=== PATIENT | female | born 1975 | race Caucasian/White ===

== ENCOUNTER 2017-05-28 10:47 | Emergency (ER) | payer MEDICARE, OTHER ==
[~2017-05-28] VITALS: Ht 167.6 cm; Wt 88.6 kg
[2017-05-28] MEDS ORDERED: IOHEXOL 350 MG/ML 10 ML VIAL (for RAD DIAG) IVCONTRAST ONE (10:48)
[2017-05-28 10:50] VITALS: BP 160/101; PULSE 91; RESP 20; TEMP 98.7; O2SAT 98
[2017-05-28] MEDS ORDERED: INFL100P (11:40)
[2017-05-28 11:45] VITALS: BP 130/76; PULSE 90; RESP 16; TEMP 98.1; O2SAT 97
[2017-05-28] MEDS ORDERED: LEFL1TAB3 PO (11:48)
[2017-05-28] MEDS ORDERED: LEVO75TA3 PO (11:48)
[2017-05-28] MEDS ORDERED: DICL50TA PO (11:48)
[2017-05-28] MEDS ORDERED: OXYC-103 PO (11:51)
[2017-05-28] MEDS ORDERED: XANA1TAB2 PO (11:55)
[2017-05-28] MEDS ORDERED: ZANA4CAP PO (11:55)
[2017-05-28] MEDS ORDERED: HYDR-3583 PO (11:55)
[2017-05-28] MEDS ORDERED: ROPI2TAB PO (12:06)
[2017-05-28 12:28] LABS: AUTOMATED NEUTROPHIL # 9.6 TH/MM3 (1.8-7.7); BASOPHIL # 0.1 TH/MM3 (0-0.2); BASOPHIL % 0.6 % (0.0-2.0); EOSINOPHIL # 0.3 TH/MM3 (0-0.4); EOSINOPHIL % 2.1 % (0.0-4.0); HEMATOCRIT 42.8 % (35.0-46.0); HEMOGLOBIN 14.5 GM/DL (11.6-15.3); LYMPH % 17.6 % (9.0-44.0); LYMPHOCYTE # 2.3 TH/MM3 (1.0-4.8); MEAN CELL VOLUME 95.4 FL (80.0-100.0); MEAN CORPUSCULAR HEMOGLOBIN 32.3 PG (27.0-34.0); MEAN CORPUSCULAR HGB CONC 33.9 % (32.0-36.0); MEAN PLATELET VOLUME 9.6 FL (7.0-11.0); MONO % 5.4 % (0.0-8.0); MONOCYTE # 0.7 TH/MM3 (0-0.9); NEUT % 74.3 % (16.0-70.0); PLATELET COUNT 217 TH/MM3 (150-450); RED BLOOD COUNT 4.49 MIL/MM3 (4.00-5.30); RED CELL DISTRIBUTION WIDTH 12.3 % (11.6-17.2)
[2017-05-28 12:40] LABS: ALBUMIN 3.7 GM/DL (3.4-5.0); ALT (GPT) 27 U/L (10-53); AST (GOT) 12 U/L (15-37); BICARBONATE 24.3 MEQ/L (21.0-32.0); BLOOD UREA NITROGEN 7 MG/DL (7-18); CALCIUM 8.9 MG/DL (8.5-10.1); CHLORIDE 105 MEQ/L (98-107); CREATININE 0.81 MG/DL (0.50-1.00); GLOMERULAR FILTRATION RATE 78 ML/MIN (>89); GLUCOSE,RANDOM 195 MG/DL (74-106); SODIUM (NA) 136 MEQ/L (136-145)
[2017-05-28 12:42] LABS: ALKALINE PHOSPHATASE 104 U/L (45-117); TOTAL BILIRUBIN ADULT 0.6 MG/DL (0.2-1.0)
[2017-05-28] MEDS ORDERED: MORPHINE SULFATE 2 MG/ML INJ IV PUSH ONE (12:45)
[2017-05-28] MEDS ORDERED: ONDANSETRON HCL 4 MG/2 ML VIAL IV PUSH ONE (13:15)
[2017-05-28 14:02] VITALS: BP 168/94; PULSE 60; RESP 17; O2SAT 96
--- NOTE | 2017-05-28 14:02 | RADRPT ---
EXAM DATE/TIME: 05/28/2017 13:26 [facility] COMPARISON: No previous studies available for comparison. INDICATIONS : Short of breath, embolism. IV CONTRAST: 64 cc Omnipaque 350 (iohexol) IV RADIATION DOSE: 11.00 CTDIvol (mGy) MEDICAL HISTORY : Cardiovascular disease. Systemic sarcoidosis. SURGICAL HISTORY : Cholecystectomy. Lymphectomy. ENCOUNTER: Initial ACUITY: 1 day PAIN SCALE: 5/10 LOCATION: Bilateral chest TECHNIQUE: Volumetric scanning of the chest was performed using a pulmonary embolism protocol MIP images were re constructed. Using automated exposure control and adjustment of the mA and/or kV according to patien t size, radiation dose was kept as low as reasonably achievable to obtain optimal diagnostic quality images. DICOM format image data is available electronically for review and comparison. Follow-up recommendations for detected pulmonary nodules are based at a minimum on nodule size and pa tient risk factors according to Fleischner Society Guidelines. FINDINGS: PULMONARY ARTERIES: No filling defects are seen in the pulmonary arteries through the segmental level. LUNGS: There is no consolidation or pneumothorax . No concerning pulmonary nodule is visualized. PLEURAE: There is no pleural thickening or pleural effusion. MEDIASTINUM: There is good visualization of the great vessels of the middle mediastinum. No evidence of mediastin al or hilar adenopathy/mass. MUSCULOSKELETAL: Within normal limits for patient age. MISCELLANEOUS: The visualized upper abdominal organs demonstrate no acute abnormality. CONCLUSION: No acute disease. Giovanny Arteaga MD on May 28, 2017 at 13:58 Board Certified Radiologist. This report was verified electronically.
--- NOTE | 2017-05-28 14:56 | PD ---
HPI Chief Complaint: Respiratory Distress Time Seen by Provider: 11:47 Travel History International Travel<30 days: No Contact w/Intl Traveler<30days: No Traveled to known affect area: No History of Present Illness HPI This is a 42-year-old female who presents to the emergency department with upper back pain that radiates through to her chest, constant, moderate severity that's been worsening over the past 3 days associated with some shortness of breath. She has a history of sarcoidosis and receives Remicade from an oncologist. She says she can't tolerate steroids. She doesn't currently see a drafter automotive design layout. She does take OxyContin and hydrocodone for pain at home but she says that has not been helping and her pain is worse when she moves and worse when she breathes. PFSH Past Medical History Heart Rhythm Problems: Yes (SINUS TACH) Cancer: Yes (SYSTEMIC SARCOIDOSIS) Cardiovascular Problems: Yes (sinus tachycardia) Chemotherapy: Yes (remicade) Immune Disorder: Yes (ENLARGED SPLEEN) Medical other: Yes (NEUROPATHY) Respiratory: Yes (sarcoidosis) Thyroid Disease: Yes Tetanus Vaccination: Unknown Influenza Vaccination: No ?: Not LMP: 05/05/17 Past Surgical History Cholecystectomy: Yes Other Surgery: Yes (LYMPHECTOMY) Social History Alcohol Use: No Tobacco Use: No Substance Use: No Allergies-Medications (Allergen,Severity, Reaction): Coded Allergies: hydroxychloroquine (Verified Allergy, Unknown, 05/28/17) sulfamethoxazole (Verified Allergy, Unknown, 05/28/17) trimethoprim (Verified Allergy, Unknown, 05/28/17) Uncoded Allergies: STEROIDS (Allergy, Severe, 05/28/17) Reported Meds & Prescriptions Reported Meds & Active Scripts Active Reported Ropinirole 2 Mg Tab 2 Mg PO BID Zanaflex (Tizanidine HCl) 4 Mg Cap 4 Mg PO TID Xanax (Alprazolam) 1 Mg Tab 1 Mg PO Q8H PRN Hydrocodone-Acetaminophen 10-325 mg Tab 1 Tab PO Q6H PRN Oxycontin (Oxycodone HCl) 10 Mg Tab 10 Mg PO Q12HR Diclofenac Potassium 50 Mg Tab 75 Mg PO BID Levothyroxine (Levothyroxine Sodium) 75 Mcg Tab 75 Mcg PO DAILY Leflunomide 20 Mg Tab 20 Mg PO DAILY Remicade Inj (Infliximab) 100 Mg Inj Review of Systems Except as stated in HPI: all other systems reviewed are Neg Physical Exam Narrative GENERAL:Well appearing, no acute distress SKIN: Focused skin assessment warm and dry. HEAD: Atraumatic. Normocephalic. EYES: Pupils equal and round. No injection or drainage. ENT: Moist mucous membranes NECK: Trachea midline. CARDIOVASCULAR: Regular rate and rhythm. No murmur appreciated. RESPIRATORY: Clear to auscultation. Breath sounds equal bilaterally. GASTROINTESTINAL: Abdomen soft, non-tender, nondistended. MUSCULOSKELETAL: No obvious deformities. NEUROLOGICAL: Awake and alert. No obvious cranial nerve deficits. Moving all extremities PSYCHIATRIC: Appropriate mood and affect; insight and judgment normal. Data Data Last Documented VS Vital Signs Date Time Temp Pulse Resp B/P (MAP) Pulse Ox O2 Delivery O2 Flow Rate FiO2 05/28/17 15:08 69 16 166/86 (112) 99 05/28/17 14:02 Room Air 05/28/17 11:45 98.1 Orders Orders Complete Blood Count With Diff (05/28/17 11:54) Comprehensive Metabolic Panel (05/28/17 11:54) ^ Insert Iv (05/28/17 11:54) Ct Pulmonary Angiogram (05/28/17 ) Ed Urine Pregnancytest Poc (05/28/17 11:54) Electrocardiogram (05/28/17 ) B-Type Natriuretic Peptide (05/28/17 11:55) Morphine Inj (Morphine Inj) (05/28/17 12:45) Ondansetron Inj (Zofran Inj) (05/28/17 13:15) Iohexol 350 Inj (Omnipaque 350 Inj) (05/28/17 10:48) Troponin I (05/28/17 14:56) Ed Discharge Order (05/28/17 15:00) Labs Laboratory Tests Test 05/28/17 12:05 White Blood Count 13.0 TH/MM3 Red Blood Count 4.49 MIL/MM3 Hemoglobin 14.5 GM/DL Hematocrit 42.8 % Mean Corpuscular Volume 95.4 FL Mean Corpuscular Hemoglobin 32.3 PG Mean Corpuscular Hemoglobin Concent 33.9 % Red Cell Distribution Width 12.3 % Platelet Count 217 TH/MM3 Mean Platelet Volume 9.6 FL Neutrophils (%) (Auto) 74.3 % Lymphocytes (%) (Auto) 17.6 % Monocytes (%) (Auto) 5.4 % Eosinophils (%) (Auto) 2.1 % Basophils (%) (Auto) 0.6 % Neutrophils # (Auto) 9.6 TH/MM3 Lymphocytes # (Auto) 2.3 TH/MM3 Monocytes # (Auto) 0.7 TH/MM3 Eosinophils # (Auto) 0.3 TH/MM3 Basophils # (Auto) 0.1 TH/MM3 CBC Comment DIFF FINAL Differential Comment Blood Urea Nitrogen 7 MG/DL Creatinine 0.81 MG/DL Random Glucose 195 MG/DL Total Protein 8.0 GM/DL Albumin 3.7 GM/DL Calcium Level 8.9 MG/DL Alkaline Phosphatase 104 U/L Aspartate Amino Transf (AST/SGOT) 12 U/L Alanine Aminotransferase (ALT/SGPT) 27 U/L Total Bilirubin 0.6 MG/DL Sodium Level 136 MEQ/L Potassium Level 3.9 MEQ/L Chloride Level 105 MEQ/L Carbon Dioxide Level 24.3 MEQ/L Anion Gap 7 MEQ/L Estimat Glomerular Filtration Rate 78 ML/MIN Troponin I LESS THAN 0.02 NG/ML B-Type Natriuretic Peptide 8 PG/ML MDM Medical Decision Making Medical Screen Exam Complete: Yes Emergency Medical Condition: Yes Interpretation(s) Afebrile, no hypoxia Labs are reassuring Last [address] Angiography 05/28/17 0000 Signed Impressions: Service Date/Time: Sunday, May 28, 2017 13:26 - CONCLUSION: No acute disease. Giovanny Arteaga MD Differential Diagnosis Pneumonia, pericarditis, pulmonary embolism, aortic dissection, pulmonary sarcoidosis, degenerative disc disease Narrative Course This is a 42-year-old female who presents to the emergency department with back pain that radiates to the chest. She was placed on a monitor and an IV was established. Labs were obtained which were reassuring including a normal troponin and normal BNP. Chest pain has been constant for 3-4 days so I think in the setting of reassuring EKG and normal troponin I doubt this reflects myocardial infarction. CT pulmonary angiogram was obtained to visualize possible pulmonary sarcoidosis or embolism and was unremarkable. Patient may have some musculoskeletal sarcoid complications causing her back pain. Unfortunately she has chronic pain management performed by an outside physician and I'm hesitant to titrate her opiate therapy. Patient did seem upset upon leaving that we weren't going to do more for her pain. I considered prescribing the patient steroids but she says she is allergic to all steroids. I don't think there is an emergent etiology of her symptoms and don't think she requires emergent neuro imaging. I think patient can safely be discharged home and follow-up with her outpatient physicians. Diagnosis Primary Impression: Back pain Qualified Codes: M54.6 - Pain in thoracic spine Patient Instructions: General Instructions Additional Instructions: If you develop severe chest pain, shortness of breath, sweating, lightheadedness , dizziness or difficulty breathing return to the emergency department immediately. Followup with your primary care physician in 2-3 days if your symptoms are not resolved. Med/Other Pt SpecificInfo: No Change to Meds Disposition: 01 DISCHARGE HOME Condition: Stable Katelynn Brower MD May 28, 2017 14:56
[2017-05-28 15:08] VITALS: BP 166/86
--- NOTE | 2017-05-31 00:07 | EKG ---
Date Performed: 05/28/2017 Time Performed: 11:41:18 PTAGE: 42 years EKG: Sinus rhythm NORMAL ECG NO PREVIOUS TRACING DOCTOR: Dmitry Graves Interpretating Date/Time 05/31/2017 00:05:53
== END 2017-05-28 15:11 | disposition home or self-care (01) ==
LOC: NEPE 10:47
DX: M54.6 Pain in thoracic spine (principal); R07.9 Chest pain, unspecified; R06.02 Shortness of breath; D86.89 Sarcoidosis of other sites; E07.9 Disorder of thyroid, unspecified
CPT/HCPCS: 71275; 80053; 83880; 84484; 84703; 85025; 93005; 96374; 96375; 99285; J2270; J2405; Q9967

== ENCOUNTER 2017-08-15 10:29 | Emergency (ER) | payer MEDICARE, OTHER ==
[~2017-08-15 10:29] MED LIST: DICL50TA PO; HYDR-3583 PO; INFL100P; LEFL1TAB3 PO; LEVO75TA3 PO; OXYC-103 PO; ROPI2TAB PO; XANA1TAB2 PO; ZANA4CAP PO
[2017-08-15] MEDS ORDERED: IOHEXOL 350 MG/ML 10 ML VIAL (for RAD DIAG) IVCONTRAST ONE (10:30)
[2017-08-15 10:40] VITALS: BP 153/85; PULSE 79; RESP 16; TEMP 98; O2SAT 96
[2017-08-15] MEDS ORDERED: PROMETHAZINE INJ 25 MG/ML VIAL IM ONE (11:45)
[2017-08-15] MEDS ORDERED: CLINDAMYCIN 600 MG/NS PREMIX 50 ML IV ONE (11:45)
[2017-08-15] MEDS ORDERED: SODIUM CHLOR 0.9% 1000 ML INJ 1,000 ML IV ONE (11:45)
--- NOTE | 2017-08-15 12:06 | PD ---
HPI Chief Complaint: Facial Pain or Swelling Time Seen by Provider: 11:27 Travel History International Travel<30 days: No Contact w/Intl Traveler<30days: No Traveled to known affect area: No History of Present Illness HPI 42-year-old female with history of sarcoidosis on chemotherapy presents emergency department complaining of right-sided jaw pain since yesterday. States that the pain is associated with swelling and "feels funny". Says the pain is constant and feels as if the pain is coming from the "bone outwards" and is severe. Says she has associated nausea and dizziness, she is drooling and feel that her speech is slurred. She is here today because the pain and swelling has worsened this morning. Since she has taken her pain medications without relief. Says she has a fractured tooth near the pain. She has had no unusual tastes in her mouth. denies history of this. Her last chemo was August 07. PFSH Past Medical History Heart Rhythm Problems: Yes (SINUS TACH) Cancer: Yes (SYSTEMIC SARCOIDOSIS) Cardiovascular Problems: Yes (sinus tachycardia) Chemotherapy: Yes (08/07/17) Immune Disorder: Yes (ENLARGED SPLEEN) Respiratory: Yes (sarcoidosis) Thyroid Disease: Yes ?: Unknown Past Surgical History Cholecystectomy: Yes Other Surgery: Yes (LYMPHECTOMY) Social History Alcohol Use: No Tobacco Use: No Substance Use: No Allergies-Medications (Allergen,Severity, Reaction): Coded Allergies: hydroxychloroquine (Verified Allergy, Unknown, 05/28/17) ketorolac (Verified Allergy, Unknown, Psychosis, 08/15/17) sulfamethoxazole (Verified Allergy, Unknown, 05/28/17) trimethoprim (Verified Allergy, Unknown, 05/28/17) Uncoded Allergies: STEROIDS (Allergy, Severe, 05/28/17) Reported Meds & Prescriptions Reported Meds & Active Scripts Active Clindamycin (Clindamycin HCl) 300 Mg Cap 300 Mg PO Q6H 7 Days Reported Ropinirole 2 Mg Tab 2 Mg PO BID Zanaflex (Tizanidine HCl) 4 Mg Cap 4 Mg PO TID Xanax (Alprazolam) 1 Mg Tab 1 Mg PO Q8H PRN Hydrocodone-Acetaminophen 10-325 mg Tab 1 Tab PO Q6H PRN Oxycontin (Oxycodone HCl) 10 Mg Tab 10 Mg PO Q12HR Diclofenac Potassium 50 Mg Tab 75 Mg PO BID Levothyroxine (Levothyroxine Sodium) 75 Mcg Tab 75 Mcg PO DAILY Leflunomide 20 Mg Tab 20 Mg PO DAILY Remicade Inj (Infliximab) 100 Mg Inj Review of Systems Except as stated in HPI: all other systems reviewed are Neg Physical Exam Narrative GENERAL: Well, well-nourished no apparent distress SKIN: Focused skin assessment warm/dry. HEAD: Atraumatic. Normocephalic. EYES: Pupils equal and round. No scleral icterus. No injection or drainage. ENT: No nasal bleeding or discharge. Mucous membranes pink and moist. Right jaw line just inferior to the premolar- area of bulging without fluctuance. No fluctuance or tenderness palpation of the gingiva. Eroded premolar noted without exudate. NECK: Trachea midline. No JVD. No lymphadenopathy, no muscle spasms CARDIOVASCULAR: Regular rate and rhythm. No murmur appreciated. RESPIRATORY: No accessory muscle use. Clear to auscultation. Breath sounds equal bilaterally. GASTROINTESTINAL: Abdomen soft, non-tender, nondistended. No CVA tenderness MUSCULOSKELETAL: No obvious deformities. No clubbing. No cyanosis. No edema. NEUROLOGICAL: Awake and alert. No obvious cranial nerve deficits. Motor grossly within normal limits. Normal speech. PSYCHIATRIC: Appropriate mood and affect; insight and judgment normal. Data Data Last Documented VS Vital Signs Date Time Temp Pulse Resp B/P (MAP) Pulse Ox O2 Delivery O2 Flow Rate FiO2 08/15/17 16:14 08/15/17 14:10 75 17 100 Room Air 08/15/17 10:40 98.0 Orders Orders Clindamycin 600 Mg/Ns Premix (Cleocin 60 (08/15/17 11:45) Sodium Chlor 0.9% 1000 Ml Inj (Ns 1000 M (08/15/17 11:45) Ct Facial Bones W Iv Contrast (08/15/17 ) Promethazine Inj (Phenergan Inj) (08/15/17 11:45) Complete Blood Count With Diff (08/15/17 11:45) Basic Metabolic Panel (Bmp) (08/15/17 11:45) Iohexol 350 Inj (Omnipaque 350 Inj) (08/15/17 10:30) Ed Discharge Order (08/15/17 14:40) Labs Laboratory Tests Test 08/15/17 13:10 White Blood Count 9.6 TH/MM3 Red Blood Count 4.19 MIL/MM3 Hemoglobin 13.2 GM/DL Hematocrit 39.0 % Mean Corpuscular Volume 93.0 FL Mean Corpuscular Hemoglobin 31.6 PG Mean Corpuscular Hemoglobin Concent 33.9 % Red Cell Distribution Width 12.6 % Platelet Count 211 TH/MM3 Mean Platelet Volume 9.4 FL Neutrophils (%) (Auto) 62.4 % Lymphocytes (%) (Auto) 27.6 % Monocytes (%) (Auto) 7.4 % Eosinophils (%) (Auto) 2.2 % Basophils (%) (Auto) 0.4 % Neutrophils # (Auto) 6.0 TH/MM3 Lymphocytes # (Auto) 2.7 TH/MM3 Monocytes # (Auto) 0.7 TH/MM3 Eosinophils # (Auto) 0.2 TH/MM3 Basophils # (Auto) 0.0 TH/MM3 CBC Comment DIFF FINAL Differential Comment Blood Urea Nitrogen 7 MG/DL Creatinine 0.63 MG/DL Random Glucose 195 MG/DL Calcium Level 8.2 MG/DL Sodium Level 137 MEQ/L Potassium Level 4.0 MEQ/L Chloride Level 105 MEQ/L Carbon Dioxide Level 25.3 MEQ/L Anion Gap 7 MEQ/L Estimat Glomerular Filtration Rate 104 ML/MIN [facility] Medical Decision Making Medical Screen Exam Complete: Yes Emergency Medical Condition: Yes Differential Diagnosis Right premolar dental abscess, gingivitis, dental infection Narrative Course 42-year-old female presents emergency department for evaluation of a right painful mass to the jaw. Says she has nausea uncontrolled by her zofran today. Vital signs are stable. Labs and imaging studies ordered. Because of patient's complicated medical history and immunocompromised status, ordered labs and imaging studies to further evaluation to determine treatment. Clindamycin, Phenergan, and 1 L normal saline fluid administered. CBC & BMP Diagram 08/15/17 13:10 Calcium Level 8.2 L Last Impressions Maxillofacial CT 08/15/17 0000 Signed Impressions: Service Date/Time: Tuesday, August 15, 2017 12:54 - CONCLUSION: Soft tissue induration both subcutaneous and in muscles along the right mandible. Etiology for this is not apparent. Saurabh Lemos MD FACR Based off of history and physical, the patient likely has a dental infection. Says she does take probiotics daily. Patient will be prescribed clindamycin for her likely infection. Advised to follow-up with the dentist. Dental information given. Patient advised to use anti-inflammatories and her pain medication for control of her pain and inflammation. Advised that she should follow-up with her primary care physician for further treatment and evaluation. Return to emergency room for worsening or persistent symptoms. Diagnosis Primary Impression: Dental infection Referrals: Primary Care Physician Additional Instructions: Follow-up with a dentist as discussed. Follow-up with her primary care physician. Take all medications as prescribed. If her symptoms persist or worsen return to the emergency room. Scripts Clindamycin (Clindamycin) 300 Mg Cap 300 MG PO Q6H for Infection for 7 Days, #28 CAP 0 Refills Prov: Glroia Martinez MD 08/15/17 Disposition: 01 DISCHARGE HOME Condition: Stable Tasha Mcgill Aug 15, 2017 12:06
--- NOTE | 2017-08-15 13:48 | RADRPT ---
EXAM DATE/TIME: 08/15/2017 12:54 [facility] COMPARISON: No previous studies available for comparison. INDICATIONS : Right side facial swelling. IV CONTRAST: 72 cc Omnipaque 350 (iohexol) IV RADIATION DOSE: 29.28 CTDIvol (mGy) MEDICAL HISTORY : Cardiovascular disease. Lupus. Sarcoidosis. SURGICAL HISTORY : None. ENCOUNTER: Initial ACUITY: 1 day PAIN SCALE: 4/10 LOCATION: Right facial TECHNIQUE: Volumetric scanning of the facial bones was performed. Using automated exposure control and adjustme nt of the mA and/or kV according to patient size, radiation dose was kept as low as reasonably achiev able to obtain optimal diagnostic quality images. DICOM format image data is available electronicall y for review and comparison. FINDINGS: There is soft tissue swelling along the right side of the mandible. Dentition appears intact. Patie nt does have are obtained or in place. This induration is above the expected course of the parotid d uct. The submandibular gland appears normal. There is no abscess. Nasopharynx and oropharynx are unremarkable. CONCLUSION: Soft tissue induration both subcutaneous and in muscles along the right mandible. Et iology for this is not apparent. Saurabh Lemos MD FACR on August 15, 2017 at 13:44 Board Certified Radiologist. This report was verified electronically.
[2017-08-15 13:52] LABS: BASOPHIL % 0.4 % (0.0-2.0); EOSINOPHIL # 0.2 TH/MM3 (0-0.4); EOSINOPHIL % 2.2 % (0.0-4.0); HEMOGLOBIN 13.2 GM/DL (11.6-15.3); LYMPH % 27.6 % (9.0-44.0); LYMPHOCYTE # 2.7 TH/MM3 (1.0-4.8); MEAN CORPUSCULAR HEMOGLOBIN 31.6 PG (27.0-34.0); MEAN CORPUSCULAR HGB CONC 33.9 % (32.0-36.0); MEAN PLATELET VOLUME 9.4 FL (7.0-11.0); MONO % 7.4 % (0.0-8.0); MONOCYTE # 0.7 TH/MM3 (0-0.9); NEUT % 62.4 % (16.0-70.0); PLATELET COUNT 211 TH/MM3 (150-450); RED BLOOD COUNT 4.19 MIL/MM3 (4.00-5.30); RED CELL DISTRIBUTION WIDTH 12.6 % (11.6-17.2); WHITE BLOOD COUNT 9.6 TH/MM3 (4.0-11.0)
[2017-08-15] MEDS ORDERED: CLIN300C5 PO (14:02)
[2017-08-15 14:10] VITALS: BP 133/65; PULSE 75; RESP 17; O2SAT 100
[2017-08-15 14:25] LABS: BICARBONATE 25.3 MEQ/L (21.0-32.0); CALCIUM 8.2 MG/DL (8.5-10.1); CREATININE 0.63 MG/DL (0.50-1.00)
== END 2017-08-15 16:46 | disposition home or self-care (01) ==
LOC: NEPC 10:29
DX: K04.7 Periapical abscess without sinus (principal); S02.5XXA Fracture of tooth (traumatic), initial encounter for closed fracture; X58.XXXA Exposure to other specified factors, initial encounter; D86.9 Sarcoidosis, unspecified; E07.9 Disorder of thyroid, unspecified
CPT/HCPCS: 70487; 80048; 85025; 96372; 96374; 99284; J2550; J7030; Q9967

== ENCOUNTER 2017-08-19 20:37 | Inpatient (IN) | payer MEDICARE, OTHER ==
[~2017-08-19] VITALS: Ht 167.6 cm; Wt 55.6 kg
[~2017-08-19 20:37] MED LIST changes: +CLIN300C5 PO
[2017-08-19 20:44] VITALS: BP 143/105; PULSE 106; RESP 20; TEMP 98.9; O2SAT 96
--- NOTE | 2017-08-19 21:45 | PD ---
HPI Chief Complaint: Facial Pain or Swelling Time Seen by Provider: 21:34 Travel History International Travel<30 days: No Contact w/Intl Traveler<30days: No Traveled to known affect area: No History of Present Illness HPI 42-year-old female with history of sarcoidosis on chemotherapy presents emergency department complaining of increased right jaw pain for 5 days. She describes her pain as severe, constant, and aching. Says she feels like her neck is swollen from the midline to the right and the pain radiates to her right ear. She is concerned because she had episodes of night sweats last night and the pain has not resolved. States she feels that if her swelling is increased since her visit several days ago. Patient states compliance with her medications which include clindamycin. Says she called her oncologist regarding recommendations or whether or not this was related to her sarcoidosis and they did not know. Actually recommended she follow-up with the dentist. PFSH Past Medical History Heart Rhythm Problems: Yes (SINUS TACH) Cancer: Yes (SYSTEMIC SARCOIDOSIS) Cardiovascular Problems: Yes (sinus tachycardia) Chemotherapy: Yes (08/07/17) Immune Disorder: Yes (ENLARGED SPLEEN) Respiratory: Yes (sarcoidosis) Thyroid Disease: Yes ?: Not Past Surgical History Cholecystectomy: Yes Other Surgery: Yes (LYMPHECTOMY) Social History Alcohol Use: No Tobacco Use: No Substance Use: No Allergies-Medications (Allergen,Severity, Reaction): Coded Allergies: hydroxychloroquine (Verified Allergy, Unknown, 05/28/17) ketorolac (Verified Allergy, Unknown, Psychosis, 08/15/17) sulfamethoxazole (Verified Allergy, Unknown, 05/28/17) trimethoprim (Verified Allergy, Unknown, 05/28/17) morphine (Verified Adverse Reaction, Mild, Headache, 08/20/17) Uncoded Allergies: STEROIDS (Allergy, Severe, 05/28/17) Reported Meds & Prescriptions Reported Meds & Active Scripts Active Reported Ropinirole 2 Mg Tab 2 Mg PO BID Zanaflex (Tizanidine HCl) 4 Mg Cap 4 Mg PO TID Xanax (Alprazolam) 1 Mg Tab 1 Mg PO Q8H PRN Hydrocodone-Acetaminophen 10-325 mg Tab 1 Tab PO Q6H PRN Diclofenac Potassium 50 Mg Tab 75 Mg PO BID Levothyroxine (Levothyroxine Sodium) 75 Mcg Tab 75 Mcg PO DAILY Leflunomide 20 Mg Tab 20 Mg PO DAILY Remicade Inj (Infliximab) 100 Mg Inj Review of Systems Except as stated in HPI: all other systems reviewed are Neg Physical Exam Narrative GENERAL: WD, WN in moderate distress from pain SKIN: Focused skin assessment warm/dry. HEAD: Atraumatic. Normocephalic. EYES: Pupils equal and round. No scleral icterus. No injection or drainage. ENT: No nasal bleeding or discharge. Mucous membranes pink and moist. Left jaw -3 cm area of swelling with induration without erythema. No areas of fluctuance. Gingiva nontender, no areas of fluctuance. No puncta or exudate. Fracture to the overlying the area of pain patient describes. Mild tenderness palpation to the left anterior cervical chain without significant lymphadenopathy. NECK: Trachea midline. No JVD. No meningismus CARDIOVASCULAR: Regular rate and rhythm. No murmur appreciated. RESPIRATORY: No accessory muscle use. Clear to auscultation. Breath sounds equal bilaterally. GASTROINTESTINAL: Abdomen soft, non-tender, nondistended. Hepatic and splenic margins not palpable. No CVA tenderness MUSCULOSKELETAL: No obvious deformities. No clubbing. No cyanosis. No edema. NEUROLOGICAL: Awake and alert. No obvious cranial nerve deficits. Motor grossly within normal limits. Normal speech. PSYCHIATRIC: Appropriate mood and affect; insight and judgment normal. Data Data Last Documented VS Orders Orders Complete Blood Count With Diff (08/19/17 20:47) Comprehensive Metabolic Panel (08/19/17 20:47) Prothrombin Time / Inr (Pt) (08/19/17 20:47) Act Partial Throm Time (Ptt) (08/19/17 20:47) Lactic Acid Sepsis Protocol (08/19/17 20:47) Blood Culture (08/19/17 21:45) Morphine Inj (Morphine Inj) (08/19/17 22:30) Piperacil-Tazo 3.375 Gm Premix (Zosyn 3. (08/19/17 23:30) Ampicillin-Sulbactam Inj (Unasyn Inj) (08/19/17 23:45) Admit Order (Ed Use Only) (08/19/17 ) Labs Laboratory Tests Test 08/19/17 22:01 White Blood Count 14.1 TH/MM3 Red Blood Count 4.22 MIL/MM3 Hemoglobin 13.3 GM/DL Hematocrit 38.6 % Mean Corpuscular Volume 91.5 FL Mean Corpuscular Hemoglobin 31.5 PG Mean Corpuscular Hemoglobin Concent 34.4 % Red Cell Distribution Width 12.4 % Platelet Count 256 TH/MM3 Mean Platelet Volume 9.8 FL Neutrophils (%) (Auto) 63.2 % Lymphocytes (%) (Auto) 28.3 % Monocytes (%) (Auto) 6.9 % Eosinophils (%) (Auto) 1.1 % Basophils (%) (Auto) 0.5 % Neutrophils # (Auto) 8.9 TH/MM3 Lymphocytes # (Auto) 4.0 TH/MM3 Monocytes # (Auto) 1.0 TH/MM3 Eosinophils # (Auto) 0.2 TH/MM3 Basophils # (Auto) 0.1 TH/MM3 CBC Comment AUTO DIFF Differential Comment AUTO DIFF CONFIRMED Prothrombin Time 10.9 SEC Prothromb Time International Ratio 1.1 RATIO Activated Partial Thromboplast Time 29.2 SEC Blood Urea Nitrogen 13 MG/DL Creatinine 0.73 MG/DL Random Glucose 207 MG/DL Total Protein 7.7 GM/DL Albumin 3.1 GM/DL Calcium Level 8.3 MG/DL Alkaline Phosphatase 104 U/L Aspartate Amino Transf (AST/SGOT) 27 U/L Alanine Aminotransferase (ALT/SGPT) 32 U/L Total Bilirubin 0.5 MG/DL Sodium Level 136 MEQ/L Potassium Level 4.3 MEQ/L Chloride Level 105 MEQ/L Carbon Dioxide Level 24.1 MEQ/L Anion Gap 7 MEQ/L Estimat Glomerular Filtration Rate 87 ML/MIN MDM Medical Decision Making Medical Screen Exam Complete: Yes Emergency Medical Condition: Yes Differential Diagnosis Dental infection, tooth abscess, osteomyelitis, osteonecrosis, sarcoidosis Narrative Course 42-year-old female with history of sarcoidosis on chemotherapy presents emergency department complaining of increased right jaw pain for 5 days. She describes her pain as severe, constant, and aching. Says she feels like her neck is swollen from the midline to the right and the pain radiates to her right ear. She is concerned because she had episodes of night sweats last night and the pain has not resolved. States she feels that if her swelling is increased since her visit several days ago. Patient states compliance with her medications which include clindamycin. Says she called her oncologist regarding recommendations or whether or not this was related to her sarcoidosis and they did not know. Actually recommended she follow-up with the dentist. Her last chemotherapy dose was August 07. Vital signs-initially tachycardic at 106, blood pressure 143/105, temperature 98.9. Reevaluation shows heart rate 91, blood pressure 124 systolic. Labs ordered. CBC & BMP Diagram 08/19/17 22:01 Total Protein 7.7, Albumin 3.1 L, Calcium Level 8.3 L, Alkaline Phosphatase 104 , Aspartate Amino Transf (AST/SGOT) 27, Alanine Aminotransferase (ALT/SGPT) 32, Total Bilirubin 0.5 Zosyn initiated. It appears that she has worsening jaw pain, leukocytosis. Patient appears to have failed outpatient antibiotic therapy. Should be admitted for IV antibiotics. Spoke with Dr. Moss who agreed with the admission. Diagnosis Primary Impression: Dental infection Admitting Information Admitting Physician Requests: Observation Scripts Ondansetron Odt (Ondansetron Odt) 8 Mg Tab 8 MG SL Q8H Y for NAUSEA OR VOMITING, #12 TAB 0 Refills Prov: Bryan Simmons MD 08/21/17 Amoxicillin-Clavulanate (Augmentin) 875-125 Mg Tab 1 TAB PO BIDTID for Infection, #42 TAB 0 Refills Prov: Bryan Simmons MD 08/21/17 Condition: Stable Tasha Mcgill Aug 19, 2017 21:45
[2017-08-19 22:26] LABS: AUTOMATED NEUTROPHIL # 8.9 TH/MM3 (1.8-7.7); BASOPHIL # 0.1 TH/MM3 (0-0.2); BASOPHIL % 0.5 % (0.0-2.0); EOSINOPHIL # 0.2 TH/MM3 (0-0.4); EOSINOPHIL % 1.1 % (0.0-4.0); HEMATOCRIT 38.6 % (35.0-46.0); HEMOGLOBIN 13.3 GM/DL (11.6-15.3); LYMPH % 28.3 % (9.0-44.0); MEAN CELL VOLUME 91.5 FL (80.0-100.0); MEAN CORPUSCULAR HEMOGLOBIN 31.5 PG (27.0-34.0); MEAN CORPUSCULAR HGB CONC 34.4 % (32.0-36.0); MEAN PLATELET VOLUME 9.8 FL (7.0-11.0); MONO % 6.9 % (0.0-8.0); NEUT % 63.2 % (16.0-70.0); PLATELET COUNT 256 TH/MM3 (150-450); RED BLOOD COUNT 4.22 MIL/MM3 (4.00-5.30); RED CELL DISTRIBUTION WIDTH 12.4 % (11.6-17.2); WHITE BLOOD COUNT 14.1 TH/MM3 (4.0-11.0)
[2017-08-19] MEDS ORDERED: MORPHINE SULFATE 4 MG/ML INJ IV PUSH ONE (22:30)
[2017-08-19 22:44] LABS: ALKALINE PHOSPHATASE 104 U/L (45-117); TOTAL BILIRUBIN ADULT 0.5 MG/DL (0.2-1.0); TOTAL PROTEIN 7.7 GM/DL (6.4-8.2)
[2017-08-19 22:47] LABS: ALBUMIN 3.1 GM/DL (3.4-5.0); ALT (GPT) 32 U/L (10-53); AST (GOT) 27 U/L (15-37); BICARBONATE 24.1 MEQ/L (21.0-32.0); BLOOD UREA NITROGEN 13 MG/DL (7-18); CALCIUM 8.3 MG/DL (8.5-10.1); CHLORIDE 105 MEQ/L (98-107); CREATININE 0.73 MG/DL (0.50-1.00); GLOMERULAR FILTRATION RATE 87 ML/MIN (>89); GLUCOSE,RANDOM 207 MG/DL (74-106); SODIUM (NA) 136 MEQ/L (136-145)
[2017-08-19 22:56] LABS: INTERNATIONAL NORMALIZED RATIO 1.1 RATIO; PROTHROMBIN TIME - PATIENT 10.9 SEC (9.8-11.6)
[2017-08-19 23:27] VITALS: BP 129/69; PULSE 98; RESP 17; O2SAT 97
[2017-08-19] MEDS ORDERED: PIPERACIL-TAZO 3.375 GM PREMIX 50 ML IV ONE (23:30)
[2017-08-19] MEDS ORDERED: AMPICILLIN-SULBACTAM INJ 3 GM in SODIUM CHLORIDE 0.9% INJ 100 ML IV ONE (23:45)
[2017-08-20] VITALS (7 sets, daily range): BP systolic 124–161; BP diastolic 71–98; PULSE 76–96; RESP 16–20; TEMP 96.7–97.8; O2SAT 97–98
[2017-08-20] MEDS ORDERED: OXYC-405 PO (00:04)
[2017-08-20] MEDS ORDERED: ONDA8TAB7 PO (00:05)
[2017-08-20] MEDS ORDERED: SODIUM CHLORIDE 0.9% FLUSH 10 ML FLUSH IV FLUSH PRN (00:45)
[2017-08-20] MEDS ORDERED: SENNOSIDES 8.6 MG TAB PO PRN (00:45)
[2017-08-20] MEDS ORDERED: MAGNESIUM HYDROXIDE SUSP 30 ML CUP PO PRN (00:45)
[2017-08-20] MEDS ORDERED: BISACODYL 10 MG SUPP RECTAL PRN (00:45)
[2017-08-20] MEDS ORDERED: ACETAMINOPHEN 325 MG TAB PO PRN (00:45)
[2017-08-20] MEDS ORDERED: NALOXONE HCL 0.4 MG/ML AMP IV PUSH PRN (00:45)
[2017-08-20] MEDS ORDERED: LACTULOSE SYRUP 20 GM/30 ML CUP PO PRN (00:45)
--- NOTE | 2017-08-20 00:47 | HHI.HP ---
[facility]Staff Admission Diagnosis dental infection, failed outpt abx Diagnoses: Travel History International Travel<30 Days: No Contact w/Intl Traveler <30 Da: No Traveled to Known Affected Are: No History of Present Illness 42-year-old female with a past medical history significant for sarcoidosis, lupus, unspecified neuromuscular disorder, fibromyalgia, restless leg syndrome, hypothyroidism, anxiety, Gustavo syndrome and chronic pain presents to the emergency department for evaluation of right sided facial and chin swelling. The patient was seen in the emergency department on 08/15 where she was given a prescription for clindamycin for an unspecified dental infection. CT done at that time was significant for soft tissue induration. The patient reports compliance with clindamycin without improvement in the swelling or pain of her chin and jaw. She endorses subjective fever/chills. Positive nausea. Negative shortness of breath or chest pain. No abdominal pain or diarrhea. No dysuria. No fatigue or weakness beyond baseline. Review of Systems Except as stated in HPI: all other systems reviewed are Neg Past Family Social History Past Medical History sarcoidosis, lupus, unspecified neuromuscular disorder, fibromyalgia, restless leg syndrome, hypothyroidism, anxiety, Valders syndrome and chronic pain Past Surgical History Cholecystectomy Reported Medications Reported Meds & Active Scripts Active Clindamycin (Clindamycin HCl) 300 Mg Cap 300 Mg PO Q6H 7 Days Reported Ondansetron (Ondansetron HCl) 8 Mg Tab 8 Mg PO Q4-6H Oxycodone ER (Oxycodone HCl) 20 Mg Tab 20 Mg PO Q12HR Ropinirole 2 Mg Tab 2 Mg PO BID Zanaflex (Tizanidine HCl) 4 Mg Cap 4 Mg PO TID Xanax (Alprazolam) 1 Mg Tab 1 Mg PO Q8H PRN Hydrocodone-Acetaminophen 10-325 mg Tab 1 Tab PO Q6H PRN Diclofenac Potassium 50 Mg Tab 75 Mg PO BID Levothyroxine (Levothyroxine Sodium) 75 Mcg Tab 75 Mcg PO DAILY Leflunomide 20 Mg Tab 20 Mg PO DAILY Remicade Inj (Infliximab) 100 Mg Inj Allergies: Coded Allergies: hydroxychloroquine (Verified Allergy, Unknown, 05/28/17) ketorolac (Verified Allergy, Unknown, Psychosis, 08/15/17) sulfamethoxazole (Verified Allergy, Unknown, 05/28/17) trimethoprim (Verified Allergy, Unknown, 05/28/17) Uncoded Allergies: STEROIDS (Allergy, Severe, 05/28/17) Family History Father with CAD. Mother with breast cancer. Social History Denies tobacco. Denies alcohol and illicit drugs. Physical Exam Vital Signs Vital Signs Date Time Temp Pulse Resp B/P (MAP) Pulse Ox O2 Delivery O2 Flow Rate FiO2 08/19/17 23:27 98 17 129/69 (89) 97 Room Air 08/19/17 20:44 98.9 106 20 143/105 (118) 96 Physical Exam GENERAL: female lying in bed SKIN: No rashes, ecchymoses or lesions. Cool and dry. HEAD: Atraumatic. Normocephalic. No temporal or scalp tenderness. EYES: Pupils equal round and reactive. Extraocular motions intact. No scleral icterus. No injection or drainage. ENT: Nose without bleeding, purulent drainage or septal hematoma. Throat without erythema, tonsillar hypertrophy or exudate. Uvula midline. Airway patent. Poor dentition. Patient with mild erythema along the right gumline. Mild induration along the right side of the jaw and chin. No significant erythema or swelling noted. NECK: Trachea midline. No JVD or lymphadenopathy. Supple, nontender, no meningeal signs. CARDIOVASCULAR: Regular rate and rhythm without murmurs, gallops, or rubs. RESPIRATORY: Clear to auscultation. Breath sounds equal bilaterally. No wheezes , rales, or rhonchi. GASTROINTESTINAL: Abdomen soft, non-tender, nondistended. No hepato-splenomegaly , or palpable masses. No guarding. MUSCULOSKELETAL: Extremities without clubbing, cyanosis, or edema. No joint tenderness, effusion, or edema noted. No calf tenderness. NEUROLOGICAL: Awake and alert. Cranial nerves II through XII intact. Motor and sensory grossly within normal limits. Normal speech. Laboratory Laboratory Tests Test 08/19/17 22:01 White Blood Count 14.1 Red Blood Count 4.22 Hemoglobin 13.3 Hematocrit 38.6 Mean Corpuscular Volume 91.5 Mean Corpuscular Hemoglobin 31.5 Mean Corpuscular Hemoglobin Concent 34.4 Red Cell Distribution Width 12.4 Platelet Count 256 Mean Platelet Volume 9.8 Neutrophils (%) (Auto) 63.2 Lymphocytes (%) (Auto) 28.3 Monocytes (%) (Auto) 6.9 Eosinophils (%) (Auto) 1.1 Basophils (%) (Auto) 0.5 Neutrophils # (Auto) 8.9 Lymphocytes # (Auto) 4.0 Monocytes # (Auto) 1.0 Eosinophils # (Auto) 0.2 Basophils # (Auto) 0.1 CBC Comment AUTO DIFF Differential Comment AUTO DIFF CONFIRMED Prothrombin Time 10.9 Prothromb Time International Ratio 1.1 Activated Partial Thromboplast Time 29.2 Blood Urea Nitrogen 13 Creatinine 0.73 Random Glucose 207 Total Protein 7.7 Albumin 3.1 Calcium Level 8.3 Alkaline Phosphatase 104 Aspartate Amino Transf (AST/SGOT) 27 Alanine Aminotransferase (ALT/SGPT) 32 Total Bilirubin 0.5 Sodium Level 136 Potassium Level 4.3 Chloride Level 105 Carbon Dioxide Level 24.1 Anion Gap 7 Estimat Glomerular Filtration Rate 87 Date/Time Source Procedure Growth Status 08/19/17 22:00 Blood Peripheral Aerobic Blood Culture Pending Received 08/19/17 22:00 Blood Peripheral Anaerobic Blood Culture Pending Received Result Diagram: 08/19/17220008/19/172200 Caprini VTE Risk Assessment Caprini VTE Risk Assessment: No/Low Risk (score <= 1) Caprini Risk Assessment Model Point Value = 1 Point Value = 2 Point Value = 3 Point Value = 5 Age 41-60 Minor surgery BMI > 25 kg/m2 Swollen legs Varicose veins or History of unexplained or recurrent spontaneous Oral contraceptives or hormone replacement Sepsis (< 1 month) Serious lung disease, including pneumonia (< 1 month) Abnormal pulmonary function Acute myocardial infarction Congestive heart failure (< 1 month) History of inflammatory bowel disease Medical patient at bed rest Age 61-74 Arthroscopic surgery Major open surgery (> 45 min) Laparoscopic surgery (> 45 min) Malignancy Confined to bed (> 72 hours) Immobilizing plaster cast Central venous access Age >= 75 History of VTE Family history of VTE Factor V Leiden Prothrombin [id number] Lupus anticoagulant Anticardiolipin antibodies Elevated serum homocysteine Heparin-induced thrombocytopenia Other congenital or acquired thrombophilia Stroke (< 1 month) Elective arthroplasty Hip, pelvis, or leg fracture Acute spinal cord injury (< 1 month) Prophylaxis Regimen Total Risk Factor Score Risk Level Prophylaxis Regimen 0-1 Low Early ambulation 2 Moderate Order ONE of the following: *Sequential Compression Device (SCD) *Heparin 5000 units SQ BID 3-4 Higher Order ONE of the following medications: *Heparin 5000 units SQ TID *Enoxaparin/Lovenox 40 mg SQ daily (WT < 150 kg, CrCl > 30 mL/min) *Enoxaparin/Lovenox 30 mg SQ daily (WT < 150 kg, CrCl > 10-29 mL/min) *Enoxaparin/Lovenox 30 mg SQ BID (WT < 150 kg, CrCl > 30 mL/min) AND/OR *Sequential Compression Device (SCD) 5 or more Highest Order ONE of the following medications: *Heparin 5000 units SQ TID (Preferred with Epidurals) *Enoxaparin/Lovenox 40 mg SQ daily (WT < 150 kg, CrCl > 30 mL/min) *Enoxaparin/Lovenox 30 mg SQ daily (WT < 150 kg, CrCl > 10-29 mL/min) *Enoxaparin/Lovenox 30 mg SQ BID (WT < 150 kg, CrCl > 30 mL/min) AND *Sequential Compression Device (SCD) Assessment and Plan Assessment and Plan Assessment/plan: 1. Right mandibular induration/possible dental infection Patient failed outpatient trial of clindamycin Maxillofacial CT showed induration in the subcutaneous and muscle along the right mandible without obvious abscess or fluid collection, personally reviewed Leukocytosis of 14.1, was 9.6 on 08/15 Unasyn Monitor for signs of improvement Patient will need to follow-up as an outpatient with a dentist 2. Sarcoidosis/lupus Patient seen by medardo on monthly for chemotherapy, last chemotherapy 08/07 Continue home medications 3. Fibromyalgia/restless leg syndrome/anxiety/hypothyroidism Continue home medications 4. Chronic pain Continue home OxyContin and [place] FEN Regular diet Electrolytes: Monitor and replete when necessary Ambulation Physician Certification 2 Midnight Certification Type: Admission for Inpatient Services Order for Inpatient Services The services are ordered in accordance with Medicare regulations or non- Medicare payer requirements, as applicable. In the case of services not specified as inpatient-only, they are appropriately provided as inpatient services in accordance with the 2-midnight benchmark. Estimated LOS (days): 2 2 days is the estimated time the patient will need to remain in the hospital, assuming treatment plan goals are met and no additional complications. Post-Hospital Plan: Not yet determined Blanquita Moss MD Aug 20, 2017 00:47
[2017-08-20] MEDS: ACETAMINOPHEN/HYDROcodone 325 MG/10 MG TAB PO PRN ×3 (01:13→21:30)
[2017-08-20] MEDS: ONDANSETRON HCL 4 MG/2 ML VIAL IVP PRN ×2 (01:14→09:23)
[2017-08-20] MEDS: ALPRAZolam 1 MG TAB PO PRN ×3 (03:10→20:27)
[2017-08-20] MEDS ORDERED: AMPICILLIN-SULBACTAM INJ 3 GM VIAL IM SCH (06:00)
[2017-08-20] MEDS: AMPICILLIN/SULBAC 3 GM/NS 100 ML IV SCH ×6 (06:09→18:50)
[2017-08-20] MEDS: LEVOTHYROXINE SODIUM 75 MCG TAB PO SCH (06:09)
[2017-08-20] MEDS: DOCUSATE SODIUM 50 MG/SENNA 8.6 MG TAB PO SCH ×2 (09:00→20:12)
[2017-08-20] MEDS: SODIUM CHLORIDE 0.9% FLUSH 10 ML FLUSH IV FLUSH SCH ×3 (09:17→13:26)
[2017-08-20] MEDS: oxyCODONE HCL 20 MG CONTROLLED RELEASE TAB PO SCH ×2 (09:34→20:11)
[2017-08-20] MEDS: DICLOFENAC SODIUM 75 MG DELAYED RELEASE TAB PO SCH ×2 (09:35→20:11)
[2017-08-20] MEDS: LEFLUNOMIDE 20 MG TAB PO SCH (09:36)
[2017-08-20] MEDS ORDERED: SODIUM CHLOR 0.9% 250 ML INJ 250 ML IV ONE (10:00)
[2017-08-20] MEDS ORDERED: MORPHINE SULFATE 4 MG/ML INJ IV PUSH ONE (13:30)
--- NOTE | 2017-08-20 14:35 | HHI.PR ---
Addendum to Inpatient Note Addendum Reason: Additional Documentation Additional Information Patient examined says that the pain is now extending down into her neck which is new. Has some mild erythema on the right side of her face. Her lower right side gum tissue is tender to palpation, from buccal mucosa on the other hand is nontender. CT soft tissue back read showing perisotial fluid collection on right mandibule Last Impressions Neck CT 08/20/17 1440 Signed Impressions: Service Date/Time: Sunday, August 20, 2017 15:30 - CONCLUSION: 1. Small periosteal fluid collection overlying a radiolucency surrounding the root of the right mandibular second bicuspid. This is characteristic of an inflammatory process, periosteal abscess and osteomyelitis. 2. No other significant abnormality. Brandon Garza MD Contacted water quality control engineer OMFS, no coverage for dental procedures under current on-call craniofacial physician. Consulting ID and ENT. Starting Dilaudid for better pain control. continue unasyn. Bryan Simmons MD Aug 20, 2017 14:35
[2017-08-20] MEDS ORDERED: IOHEXOL 350 MG/ML 10 ML VIAL (for RAD DIAG) IVCONTRAST ONE (15:41)
--- NOTE | 2017-08-20 16:04 | RADRPT ---
EXAM DATE/TIME: 08/20/2017 15:30 [place] COMPARISON: No previous studies available for comparison. INDICATIONS : Right facial and neck pain. IV CONTRAST: 60 cc Omnipaque 350 (iohexol) IV RADIATION DOSE: 13.79 CTDIvol (mGy) MEDICAL HISTORY : Sarcoidosis SURGICAL HISTORY : Lymphectomy ENCOUNTER: Initial ACUITY: 3 days PAIN SCALE: 6/10 LOCATION: Right neck TECHNIQUE: Volumetric scanning of the neck was performed. Using automated exposure control and adjustment of th e mA and/or kV according to patient size, radiation dose was kept as low as reasonably achievable to obtain optimal diagnostic quality images. DICOM format image data is available electronically for r eview and comparison. FINDINGS: NASOPHARYNX: The nasopharyngeal airway has a normal configuration. No mucosal thickening or mass is seen. OROPHARYNX: The intrinsic muscles of the tongue are symmetric. The tonsillar pillars are intact. The prevertebr al soft tissues are not thickened. LARYNX: The supraglottic, glottic, and infraglottic structures are intact. PARAPHARYNGEAL: The parapharyngeal space is intact. SALIVARY GLANDS: The parotid and submandibular glands are intact. LYMPH NODES: No enlarged or necrotic-appearing nodes. THYROID: Homogeneous enhancement without evidence of nodule. BONES: Focal radiolucency is identified surrounding the right-sided second bicuspid tooth the mandible (29). The radiolucency connects to a small lytic defect underlying the root. The tooth itself contains a l arge cavity. On the lateral periosteal margin of the right mandibular body there is a small periostea l fluid collection measuring 1.8 cm in length by 5 mm in thickness. Overlying soft tissue swelling is noted. CONCLUSION: 1. Small periosteal fluid collection overlying a radiolucency surrounding the root of the right jared bular second bicuspid. This is characteristic of an inflammatory process, periosteal abscess and oste omyelitis. 2. No other significant abnormality. Brandon Garza MD on August 20, 2017 at 15:47 Board Certified Radiologist. This report was verified electronically.
[2017-08-20 17:21] LABS: AUTOMATED NEUTROPHIL # 4.4 TH/MM3 (1.8-7.7); BASOPHIL % 0.3 % (0.0-2.0); EOSINOPHIL # 0.2 TH/MM3 (0-0.4); EOSINOPHIL % 1.9 % (0.0-4.0); HEMATOCRIT 38.7 % (35.0-46.0); HEMOGLOBIN 13.3 GM/DL (11.6-15.3); LYMPH % 40.7 % (9.0-44.0); LYMPHOCYTE # 3.7 TH/MM3 (1.0-4.8); MEAN CELL VOLUME 92.3 FL (80.0-100.0); MEAN CORPUSCULAR HEMOGLOBIN 31.7 PG (27.0-34.0); MEAN CORPUSCULAR HGB CONC 34.3 % (32.0-36.0); MONO % 8.6 % (0.0-8.0); MONOCYTE # 0.8 TH/MM3 (0-0.9); NEUT % 48.5 % (16.0-70.0); PLATELET COUNT 232 TH/MM3 (150-450); RED BLOOD COUNT 4.19 MIL/MM3 (4.00-5.30); RED CELL DISTRIBUTION WIDTH 12.2 % (11.6-17.2)
[2017-08-20] MEDS ORDERED: SODIUM CHLOR 0.9% 1000 ML INJ 1,000 ML IV ONE (19:30)
[2017-08-20] MEDS: HYDROmorphone HCL PF 2 MG/ML VIAL IV PUSH PRN (19:58)
[2017-08-20] MEDS: SODIUM CHLOR 0.9% 1000 ML INJ 1,000 ML IV SCH (21:29)
[2017-08-21] MEDS: AMPICILLIN/SULBAC 3 GM/NS 100 ML IV SCH ×8 (00:51→18:00)
[2017-08-21] MEDS: HYDROmorphone HCL PF 2 MG/ML VIAL IV PUSH PRN ×4 (00:52→14:36)
[2017-08-21] MEDS: ONDANSETRON HCL 4 MG/2 ML VIAL IVP PRN ×2 (03:33→09:38)
[2017-08-21] MEDS: ACETAMINOPHEN/HYDROcodone 325 MG/10 MG TAB PO PRN ×2 (03:33→13:08)
[2017-08-21] MEDS: LEVOTHYROXINE SODIUM 75 MCG TAB PO SCH (05:31)
[2017-08-21] MEDS: SODIUM CHLOR 0.9% 1000 ML INJ 1,000 ML IV SCH ×2 (05:32→14:36)
[2017-08-21 08:00] VITALS: BP 135/91; PULSE 83; RESP 16; TEMP 97.1; O2SAT 97
[2017-08-21 08:31] LABS: AUTOMATED NEUTROPHIL # 4.7 TH/MM3 (1.8-7.7); BASOPHIL % 0.5 % (0.0-2.0); EOSINOPHIL # 0.2 TH/MM3 (0-0.4); EOSINOPHIL % 2.1 % (0.0-4.0); HEMATOCRIT 39.4 % (35.0-46.0); HEMOGLOBIN 13.4 GM/DL (11.6-15.3); LYMPH % 37.5 % (9.0-44.0); LYMPHOCYTE # 3.4 TH/MM3 (1.0-4.8); MEAN CELL VOLUME 93.7 FL (80.0-100.0); MEAN CORPUSCULAR HEMOGLOBIN 31.9 PG (27.0-34.0); MEAN PLATELET VOLUME 9.2 FL (7.0-11.0); MONO % 8.2 % (0.0-8.0); MONOCYTE # 0.8 TH/MM3 (0-0.9); NEUT % 51.7 % (16.0-70.0); PLATELET COUNT 234 TH/MM3 (150-450); RED CELL DISTRIBUTION WIDTH 12.5 % (11.6-17.2); WHITE BLOOD COUNT 9.2 TH/MM3 (4.0-11.0)
[2017-08-21] MEDS: DICLOFENAC SODIUM 75 MG DELAYED RELEASE TAB PO SCH (08:40)
[2017-08-21] MEDS: LEFLUNOMIDE 20 MG TAB PO SCH (08:41)
[2017-08-21] MEDS: oxyCODONE HCL 20 MG CONTROLLED RELEASE TAB PO SCH (08:42)
[2017-08-21] MEDS: DOCUSATE SODIUM 50 MG/SENNA 8.6 MG TAB PO SCH (08:43)
[2017-08-21 09:00] LABS: BICARBONATE 23.4 MEQ/L (21.0-32.0); CALCIUM 8.4 MG/DL (8.5-10.1); CREATININE 0.63 MG/DL (0.50-1.00)
--- NOTE | 2017-08-21 10:24 | PD.ID.CON ---
History of Present Illness Service ID Consult Requested By Reason for Consult Evaluation and Mment of Dental abscess possible osteomyelitis. Primary Care Physician Non-Staff Diagnoses: History of Present Illness is a 42 y/o CF with past medical history significant for sarcoidosis , lupus, unspecified neuromuscular disorder, fibromyalgia, restless leg syndrome , hypothyroidism, anxiety, Munford syndrome and chronic pain. With this background patient presents to the emergency department for evaluation of right sided facial and chin swelling. The patient was seen in the emergency department on 08/15 where she was given a prescription for clindamycin for an unspecified dental infection. CT done at that time was significant for soft tissue induration. The patient reports compliance with clindamycin without improvement in the swelling or pain of her chin and jaw. She endorses subjective fever/chills. Positive nausea. Negative shortness of breath or chest pain. No abdominal pain or diarrhea. No dysuria. No fatigue or weakness beyond baseline. Patient has partial dentures upper. Patient also has a chipped left incisor that is old. Patient denies any fevers,night sweats. Denies any airway swelling or difficulty breathing. ID consulted for evaluation and Mment of Dental abscess possible Right mandibular osteomyelitis. Review of Systems Constitutional: DENIES: Diaphoretic episodes, Fatigue, Fever, Weight gain, Weight loss, Chills, Dizziness, Change in appetite, Night Sweats Endocrine: DENIES: Abnorml menstrual pattern, Heat/cold intolerance, Polydipsia , Polyuria, Polyphagia Eyes: DENIES: Blurred vision, Diplopia, Eye inflammation, Eye pain, Vision loss , Photosensitivity, Double Vision Ears, nose, mouth, throat: COMPLAINS OF: Toothache, DENIES: Tinnitus, Hearing loss, Vertigo, Nasal discharge, Oral lesions, Throat pain, Hoarseness, Ear Pain , Running Nose, Epistaxis, Sinus Pain, Odynophagia Respiratory: DENIES: Apneas, Cough, Snoring, Wheezing, Hemoptysis, Sputum production, Shortness of breath Cardiovascular: DENIES: Chest pain, Palpitations, Syncope, Dyspnea on Exertion , PND, Lower Extremity Edema, Orthopnea, Claudication Gastrointestinal: DENIES: Abdominal pain, Black stools, Bloody stools, Constipation, Diarrhea, Nausea, Vomiting, Difficulty Swallowing, Anorexia Genitourinary: DENIES: Abnormal vaginal bleeding, Dysmenorrhea, Dyspareunia, Sexual dysfunction, Urinary frequency, Urinary incontinence, Urgency, Hematuria , Dysuria, Nocturia, Vaginal discharge Musculoskeletal: DENIES: Joint pain, Muscle aches, Stiffness, Joint Swelling, Back pain, Neck pain Integumentary: DENIES: Abnormal pigmentation, Pruritus, Rash, Nail changes, Breast masses, Breast skin changes, Nipple discharge Hematologic/lymphatic: COMPLAINS OF: Bruising, DENIES: Lymphadenopathy Immunologic/allergic: DENIES: Eczema, Urticaria Neurologic: DENIES: Abnormal gait, Headache, Localized weakness, Paresthesias, Seizures, Speech Problems, Tremor, Poor Balance Psychiatric: COMPLAINS OF: Anxiety, DENIES: Confusion, Mood changes, Depression , Hallucinations, Agitation, Suicidal Ideation, Homicidal Ideation, Delusions Except as stated in HPI: all other systems reviewed are Neg Past Family Social History Allergies: Coded Allergies: hydroxychloroquine (Verified Allergy, Unknown, 05/28/17) ketorolac (Verified Allergy, Unknown, Psychosis, 08/15/17) sulfamethoxazole (Verified Allergy, Unknown, 05/28/17) trimethoprim (Verified Allergy, Unknown, 05/28/17) morphine (Verified Adverse Reaction, Mild, Headache, 08/20/17) Uncoded Allergies: STEROIDS (Allergy, Severe, 05/28/17) Past Medical History sarcoidosis, lupus, unspecified neuromuscular disorder, fibromyalgia, restless leg syndrome, hypothyroidism, anxiety, Gustavo syndrome chronic pain Past Surgical History Cholecystectomy Reported Medications Reported Meds & Active Scripts Active Clindamycin (Clindamycin HCl) 300 Mg Cap 300 Mg PO Q6H 7 Days Reported Ondansetron (Ondansetron HCl) 8 Mg Tab 8 Mg PO Q4-6H Oxycodone ER (Oxycodone HCl) 20 Mg Tab 20 Mg PO Q12HR Ropinirole 2 Mg Tab 2 Mg PO BID Zanaflex (Tizanidine HCl) 4 Mg Cap 4 Mg PO TID Xanax (Alprazolam) 1 Mg Tab 1 Mg PO Q8H PRN Hydrocodone-Acetaminophen 10-325 mg Tab 1 Tab PO Q6H PRN Diclofenac Potassium 50 Mg Tab 75 Mg PO BID Levothyroxine (Levothyroxine Sodium) 75 Mcg Tab 75 Mcg PO DAILY Leflunomide 20 Mg Tab 20 Mg PO DAILY Remicade Inj (Infliximab) 100 Mg Inj Active Ordered Medications Current Medications Medications (Trade) Dose Ordered Sig/Lisa Route Start Time Stop Time Status Last Admin (NS Flush) 2 ml UNSCH PRN IV FLUSH 08/20/17 00:45 (NS Flush) 2 ml BID IV FLUSH 08/20/17 09:00 08/20/17 13:26 (Tylenol) 650 mg Q4H PRN PO 08/20/17 00:45 (Zofran Inj) 4 mg Q6H PRN IVP 08/20/17 00:45 08/21/17 09:38 (Narcan Inj) 0.4 mg UNSCH PRN IV PUSH 08/20/17 00:45 (Destiny-Colace) 1 tab BID PO 08/20/17 09:00 (Milk Of Magnesia Liq) 30 ml Q12H PRN PO 08/20/17 00:45 (Senokot) 17.2 mg Q12H PRN PO 08/20/17 00:45 (Dulcolax Supp) 10 mg DAILY PRN RECTAL 08/20/17 00:45 (Lactulose Liq) 30 ml DAILY PRN PO 08/20/17 00:45 (Xanax) 1 mg Q8H PRN PO 08/20/17 00:45 08/21/17 13:14 (Bristow 10-325 Mg) 1 tab Q6H PRN PO 08/20/17 00:45 08/21/17 13:08 (Synthroid) 75 mcg DAILY@0600 PO 08/20/17 06:00 08/21/17 05:31 (OxyCONTIN CR) 20 mg Q12HR PO 08/20/17 09:00 08/21/17 08:42 (Requip) 2 mg BID PO 08/20/17 09:00 08/21/17 08:40 (Zanaflex) 4 mg TID PO 08/20/17 09:00 08/21/17 13:19 (Voltaren Dr) 75 mg BID PO 08/20/17 09:00 08/21/17 08:40 (Arava) 20 mg DAILY PO 08/20/17 09:00 08/21/17 08:41 Ampicillin Sodium/ Sulbactam Sodium 3 gm/Sodium Chloride 100 ml @ 200 mls/hr Q6H IV 08/20/17 06:00 08/21/17 13:07 (Dilaudid Pf Inj) 1 mg Q4H PRN IV PUSH 08/20/17 14:45 08/21/17 09:38 Sodium Chloride 1,000 ml @ 84 mls/hr [id number] IV 08/20/17 19:30 08/21/17 05:32 Family History reviewed and NC Father with CAD. Mother with breast cancer. Social History Denies tobacco. Denies alcohol and illicit drugs. Physical Exam Vital Signs Vital Signs Date Time Temp Pulse Resp B/P (MAP) Pulse Ox O2 Delivery O2 Flow Rate FiO2 08/21/17 08:00 97.1 83 16 135/91 (106) 97 08/20/17 20:00 96.8 85 20 161/98 (119) 98 08/20/17 16:00 97.0 96 16 124/84 (97) 97 08/20/17 12:00 96.7 84 16 141/91 (108) 97 08/20/17 10:57 97.1 78 18 145/91 (109) 08/20/17 10:32 Physical Exam GENERAL: This is a well-nourished, well-developed patient, in no apparent distress. SKIN: No rashes, ecchymoses or lesions. Cool and dry. HEAD: Atraumatic. Normocephalic. No temporal or scalp tenderness. EYES: Pupils equal round and reactive. Extraocular motions intact. No scleral icterus. No injection or drainage. ENT: Nose without bleeding, purulent drainage or septal hematoma. Throat without erythema, tonsillar hypertrophy or exudate. Uvula midline. Airway patent. Right side mandible with swelling minimal, minimal tenderness, not much induration. Upper partial dentures. NECK: Trachea midline. Supple, nontender, no meningeal signs. CARDIOVASCULAR: HS audible. RESPIRATORY: Clear to auscultation. Breath sounds equal bilaterally. No wheezes , rales, or rhonchi. GASTROINTESTINAL: Abdomen soft, non-tender, nondistended. MUSCULOSKELETAL: Extremities without clubbing, cyanosis, or edema. No joint tenderness, effusion, or edema noted. No calf tenderness. Negative Homans sign bilaterally. NEUROLOGICAL: Awake and alert. Non focal exam Psych cooperative IV line sites with no e.o infection. Laboratory Laboratory Tests Test 08/20/17 16:00 08/21/17 06:49 White Blood Count 9.0 9.2 Red Blood Count 4.19 4.20 Hemoglobin 13.3 13.4 Hematocrit 38.7 39.4 Mean Corpuscular Volume 92.3 93.7 Mean Corpuscular Hemoglobin 31.7 31.9 Mean Corpuscular Hemoglobin Concent 34.3 34.0 Red Cell Distribution Width 12.2 12.5 Platelet Count 232 234 Mean Platelet Volume 9.0 9.2 Neutrophils (%) (Auto) 48.5 51.7 Lymphocytes (%) (Auto) 40.7 37.5 Monocytes (%) (Auto) 8.6 8.2 Eosinophils (%) (Auto) 1.9 2.1 Basophils (%) (Auto) 0.3 0.5 Neutrophils # (Auto) 4.4 4.7 Lymphocytes # (Auto) 3.7 3.4 Monocytes # (Auto) 0.8 0.8 Eosinophils # (Auto) 0.2 0.2 Basophils # (Auto) 0.0 0.0 CBC Comment DIFF FINAL DIFF FINAL Differential Comment Blood Urea Nitrogen 8 Creatinine 0.63 Random Glucose 193 Calcium Level 8.4 Sodium Level 138 Potassium Level 4.0 Chloride Level 108 Carbon Dioxide Level 23.4 Anion Gap 7 Estimat Glomerular Filtration Rate 104 Date/Time Source Procedure Growth Status 08/19/17 22:00 Blood Peripheral Aerobic Blood Culture - Preliminary NO GROWTH IN 1 DAY Resulted 08/19/17 22:00 Blood Peripheral Anaerobic Blood Culture - Preliminary NO GROWTH IN 1 DAY Resulted Result Diagram: 08/21/17 0649 08/21/17 0649 Imaging Last Impressions Neck CT 08/20/17 1440 Signed Impressions: Service Date/Time: Sunday, August 20, 2017 15:30 - CONCLUSION: 1. Small periosteal fluid collection overlying a radiolucency surrounding the root of the right mandibular second bicuspid. This is characteristic of an inflammatory process, periosteal abscess and osteomyelitis. 2. No other significant abnormality. Brandon Garza MD Assessment and Plan Assessment and Plan Right mandibular abscess at base on 2nd tooth. Possible osteomyelitis. sarcoidosis, lupus fibromyalgia, Gustavo syndrome chronic pain Recs: Continue Unasyn IV while in hospital. Augmentin oral 875 mg po tid on discharge for 2 weeks: may need extension if osteomyelitis. Referral to [facility] as outpatient tomas if they dont come in house. Referral to Infectious Disease Dr.Reba Storm. Hector Castro. Will sign off please call back if any change in clinical condition or questions. Charley Lang MD Aug 21, 2017 10:24
[2017-08-21 12:00] VITALS: BP 131/81; PULSE 72; RESP 16; TEMP 96.6; O2SAT 98
[2017-08-21] MEDS: ALPRAZolam 1 MG TAB PO PRN (13:14)
--- NOTE | 2017-08-21 13:20 | HHI.PR ---
Subjective Remarks Discussed case with ENT, they do not treat mandibular abscesses. We discussed case with radiology Dr. Garza, he says that the soft tissue swelling is improved based upon the 08/[address] comparison to the 08/15 maxillofacial bones to the CT. he says that the fluid collection which he thinks is an abscess is larger but he thinks this could be simply proceed this way because the edema is improved. I have [place] a vcm with 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 Objective Vital Signs Date Time Temp Pulse Resp B/P (MAP) Pulse Ox O2 Delivery O2 Flow Rate FiO2 08/21/17 12:00 96.6 72 16 131/81 (98) 98 08/21/17 08:00 97.1 83 16 135/91 (106) 97 08/20/17 20:00 96.8 85 20 161/98 (119) 98 08/20/17 16:00 97.0 96 16 124/84 (97) 97 I/O 08/20/17 08/20/17 08/20/17 08/21/17 08/21/17 08/21/17 07:00 15:00 23:00 07:00 15:00 23:00 Intake Total 200 ml 250 ml Balance 200 ml 250 ml Intake IV Total 200 ml 250 ml Result Diagram: 08/21/17 0649 08/21/17 0649 Objective Remarks mild edema over right cheek; unchanged mandibular TTP compared to yesterday. Pt in NAD. seems to be in better spirits today. A/P Assessment and Plan D/w ID, can be discharged on oral abx. Addendum, d/c w/ Dr. Sheth, maybe discharged and possibly seen in clinic tomorrow for extraction. will d/c if tolerating po intake ok soft diet for dinner this evening. explained to pt that no extra intervention will be provided while she is in inpatient and that her pain will remain until it is dealt with surgically in clinic. Upon hearing this patient said she abruptly thinks she feels hot and a little nauseated yet she is ordering dinner; i informed her she has no fever and that she can use ODT zofran. I will stop dilaudid; no scripts for further narcotics since pt has home narcotics. DC this evening post dinner if tolerating po w/ stable V/S. Over 30 minutes was spent upon patient care and discharge arrangements for this patient. Bryan Simmons MD Aug 21, 2017 13:20
[2017-08-21 16:00] VITALS: BP 134/87; PULSE 83; RESP 16; TEMP 97.5; O2SAT 98
[2017-08-21 16:30] VITALS: BP 145/99; PULSE 90; RESP 16; TEMP 98.2; O2SAT 98
[2017-08-21] MEDS ORDERED: AUGM875T3 PO (17:44)
--- NOTE | 2017-08-21 17:46 | HHI.DCPOC ---
Discharge Care Plan Diagnosis: (1) Dental infection (2) Dental abscess Goals to Promote Your Health * To prevent worsening of your condition and complications * To maintain your health at the optimal level Directions to Meet Your Goals Take your medications as prescribed Follow your dietary instruction Follow activity as directed Keep your appointments as scheduled Take your immunizations and boosters as scheduled If your symptoms worsen call your PCP, if no PCP go to Urgent Care Center or Emergency Room Smoking is Dangerous to Your Health. Avoid second hand smoke Call the 24-hour hour crisis hotline for domestic abuse at Bryan Simmons MD Aug 21, 2017 17:46
[2017-08-21] MEDS ORDERED: ONDA8TAB8 SL (17:47)
[2017-08-21] MEDS ORDERED: SODIUM CHLOR 0.9% 1000 ML INJ 1,000 ML IV ONE (18:00)
[2017-08-21] MEDS ORDERED: ONDANSETRON ODT 4 MG TAB PO PRN (18:00)
[2017-08-21 21:08] VITALS: BP 187/92; PULSE 93; RESP 20; TEMP 96.8; O2SAT 96
[2017-08-21 21:35] VITALS: BP 181/97
== END 2017-08-21 21:55 | disposition home or self-care (01) | DRG 159 ==
LOC: NED 20:37 → NEDA 23:45 → NEDH 08-20 03:56 → HOCB 08-20 10:43 → N04B 08-21 16:35
PROVIDERS: ADMIT Hospitalist; ATTEND Hospitalist
DX: K04.7 Periapical abscess without sinus (principal); D86.9 Sarcoidosis, unspecified; F41.9 Anxiety disorder, unspecified; G25.81 Restless legs syndrome; G89.29 Other chronic pain; M79.7 Fibromyalgia; E03.9 Hypothyroidism, unspecified; R61 Generalized hyperhidrosis; R60.0 Localized edema; E07.9 Disorder of thyroid, unspecified; R00.0 Tachycardia, unspecified; R68.84 Jaw pain
CPT/HCPCS: 70491; 80048; 80053; 83605; 85025; 85610; 85730; 87040; 96374; J0295; J1170; J2270; J2405; J7030; J7050; Q9967